=== PATIENT | female | born 1995 | race Caucasian/White ===

== ENCOUNTER → 2023-11-28 10:53 | Outpatient (REF) | payer OTHER, SELFPAY | LOC: RAD 10:53 | PROVIDERS: ATTENDING PHYSICIAN Obstetrics & Gynecology; FAMILY PHYSICIAN Family Medicine | DX: Z31.41 Encounter for fertility testing (principal) | CPT/HCPCS: 58340; 74740 ==

== ENCOUNTER → 2024-07-24 06:52 | Outpatient (REF) | payer OTHER, SELFPAY | LOC: PNTC 06:52 | PROVIDERS: ATTENDING PHYSICIAN Obstetrics & Gynecology | DX: Z36.0 Encounter for antenatal screening for chromosomal anomalies (principal); Z36.82 Encounter for antenatal screening for nuchal translucency; O99.210 Obesity complicating pregnancy, unspecified trimester | CPT/HCPCS: 76801; 76813 ==

== ENCOUNTER → 2024-08-19 06:59 | Outpatient (REF) | payer OTHER, SELFPAY | LOC: PNTC 06:59 | PROVIDERS: ATTENDING PHYSICIAN Obstetrics & Gynecology | DX: O99.210 Obesity complicating pregnancy, unspecified trimester (principal) | CPT/HCPCS: 76805 ==

== ENCOUNTER → 2024-09-17 06:57 | Outpatient (REF) | payer OTHER, SELFPAY | LOC: PNTC 06:57 | PROVIDERS: ATTENDING PHYSICIAN Obstetrics & Gynecology | DX: O99.210 Obesity complicating pregnancy, unspecified trimester (principal) | CPT/HCPCS: 76811; 76817 ==

== ENCOUNTER → 2024-10-16 06:54 | Outpatient (REF) | payer OTHER, SELFPAY | LOC: PNTC 06:54 | PROVIDERS: ATTENDING PHYSICIAN Obstetrics & Gynecology | DX: O99.210 Obesity complicating pregnancy, unspecified trimester (principal) | CPT/HCPCS: 76816 ==

== ENCOUNTER → 2024-11-13 06:57 | Outpatient (REF) | payer OTHER, SELFPAY | LOC: PNTC 06:57 | PROVIDERS: ATTENDING PHYSICIAN Obstetrics & Gynecology | DX: O99.210 Obesity complicating pregnancy, unspecified trimester (principal) | CPT/HCPCS: 76816 ==

== ENCOUNTER → 2024-12-11 06:54 | Outpatient (REF) | payer OTHER, SELFPAY | LOC: PNTC 06:54 | PROVIDERS: ATTENDING PHYSICIAN Obstetrics & Gynecology | DX: O99.210 Obesity complicating pregnancy, unspecified trimester (principal) | CPT/HCPCS: 76816 ==

== ENCOUNTER 2024-12-17 13:34 | Observation (INO) | payer OTHER, SELFPAY ==
[2024-12-17 14:13] VITALS: BP 128/76; BMI 43.4
[2024-12-17 14:13] LABS: Hematocrit 36.4 % (37.0-47.0); Hemoglobin 12.8 g/dL (12.0-16.0); Mean Corp Hgb Conc. 35.2 g/dL (33.0-37.0); Mean Corpuscular Volume 91.9 fL (81.0-99.0); Platelet Count 266 10^3/uL (130-400); Red Cell Dist. Width 12.9 % (11.5-14.5)
[2024-12-17 14:16] LABS: Urine Character Clear (Clear)
[2024-12-17 14:38] LABS: ALT (SGPT) 13 U/L (0-35); AST (SGOT) 18 U/L (14-36); Albumin 3.6 g/dl (3.5-5.0); Alkaline Phosphatase 110 U/L (38-126); Blood Urea Nitrogen 4 mg/dl (7-17); Calcium 9.7 mg/dl (8.4-10.2); Carbon Dioxide 22 mmol/L (22-30); Chloride 109 mmol/L (98-107); Estimated Creatinine Clearance > 125 ml/min; Glucose 126 mg/dl (70-99); Potassium 4.2 mmol/L (3.5-5.1); Sodium 135 mmol/L (135-145); Total Protein 6.4 g/dl (6.3-8.2); eGFR > 60.00
[2024-12-17] MEDS: TYLENOL 1000 MG PO (16:04)
== END 2024-12-17 17:00 | disposition home or self-care (01) ==
LOC: PNTC-IN 13:34
PROVIDERS: ADMITTING PHYSICIAN Obstetrics & Gynecology
DX: O26.893 Other specified pregnancy related conditions, third trimester (principal); Z3A.33 33 weeks gestation of pregnancy; R51.9 Headache, unspecified; R42 Dizziness and giddiness; H53.9 Unspecified visual disturbance
CPT/HCPCS: 59025; 80053; 81003; 82570; 84156; 85027; G0378

== ENCOUNTER → 2024-12-24 06:57 | Outpatient (REF) | payer OTHER, SELFPAY | LOC: PNTC 06:57 | PROVIDERS: ATTENDING PHYSICIAN Obstetrics & Gynecology | DX: O99.210 Obesity complicating pregnancy, unspecified trimester (principal) | CPT/HCPCS: 59025; 76815 ==

== ENCOUNTER → 2024-12-31 07:13 | Outpatient (REF) | payer OTHER, SELFPAY | LOC: PNTC 07:13 | PROVIDERS: ATTENDING PHYSICIAN Obstetrics & Gynecology | DX: O99.210 Obesity complicating pregnancy, unspecified trimester (principal) | CPT/HCPCS: 59025; 76815 ==

== ENCOUNTER → 2025-01-07 06:52 | Outpatient (REF) | payer OTHER, SELFPAY | LOC: PNTC 06:52 | PROVIDERS: ATTENDING PHYSICIAN Obstetrics & Gynecology | DX: O99.210 Obesity complicating pregnancy, unspecified trimester (principal) | CPT/HCPCS: 59025; 76816 ==

== ENCOUNTER → 2025-01-14 06:55 | Outpatient (REF) | payer OTHER, SELFPAY | LOC: PNTC 06:55 | PROVIDERS: ATTENDING PHYSICIAN Obstetrics & Gynecology | DX: O99.213 Obesity complicating pregnancy, third trimester (principal); O36.63X0 Maternal care for excessive fetal growth, third trimester, not applicable or unspecified | CPT/HCPCS: 59025; 76815 ==

== ENCOUNTER → 2025-01-21 07:46 | Outpatient (REF) | payer OTHER, SELFPAY | LOC: PNTC 07:46 | PROVIDERS: ATTENDING PHYSICIAN Obstetrics & Gynecology | DX: O36.63X0 Maternal care for excessive fetal growth, third trimester, not applicable or unspecified (principal); O99.213 Obesity complicating pregnancy, third trimester | CPT/HCPCS: 59025; 76815 ==

== ENCOUNTER 2025-01-27 19:30 | Inpatient (IN) | payer OTHER, SELFPAY ==
[2025-01-27 19:36] VITALS: BP 126/88; BMI 44.6
[2025-01-27 20:17] LABS: Hematocrit 37.6 % (37.0-47.0); Hemoglobin 13.1 g/dL (12.0-16.0); Mean Corp Hgb Conc. 34.8 g/dL (33.0-37.0); Mean Corpuscular Volume 90.6 fL (81.0-99.0); Nucleated Red Blood Cells % 0 %; Platelet Count 245 10^3/uL (130-400); Red Cell Dist. Width 12.8 % (11.5-14.5)
[2025-01-27] MEDS: CYTOTEC 25 MICROGRAM VAG (20:37)
[2025-01-28] MEDS: LR 1000 IV (07:10)
[2025-01-28] MEDS: TYLENOL 1000 MG PO (07:54)
[2025-01-28] MEDS: BICITRA 30 ML PO (07:54)
[2025-01-28] MEDS: ANCEF 15 MG IV (08:24)
--- NOTE | 2025-01-28 09:08 | HPS.HSE ---
Family Physician
-
Family Physician: NO INTERVIEW UNKNOWN
Chief Complaint
-
suspected LGA
History of Present Illness
HPI: Patient is a 29yo @39.2 who presents for IOL for suspected macrosomia. She has no complaints.
complications:
- BMI 41
- Suspected macrosomia- EFW on 01/23 4474g (>90%tile), AC >97%tile
- GBS positive
PMHx: obesity
Meds: PNV
Surghx: denies
NKDA
Socialhx: denies
Famhx: non-contributory
OBHx:
labs: Blood type O+, Ab neg, RPR non-reactive,UCx neg, HBsAg neg, HIV neg, GCCT neg, Rubella immune, Hep C neg, 1hr 150, 3hr w/ 1 elevation, GBS positive
Medical History
Past Medical History
Past Medical History: Reports None
Past Surgical History: Reports None
Social History
Tobacco: Non-smoker
Alcohol: None
Drug: None
Family History
Family History: Not pertinent
Allergies / Home Medications
Allergies reflects when Allergies were last updated in [facility].
Home Medications with original date entered in [facility]
Allergy/Medication List:
NKDA
Meds: PNV
Review of Systems
-
A 12 point ROS was completed and negative except as noted: Yes
Physical Exam
Vital Signs
Vital Signs
Temp Pulse Resp BP Pulse Ox
98.3 F 90 18 126/88 99
01/27/25 19:36 01/27/25 19:36 01/27/25 19:36 01/27/25 19:36 01/27/25 19:36
Physical Exam
General: Well Developed and Well Nourished
HEENT: NormoCephalic
Respiratory: Non Labored Respirations
Cardiac: Regular Rhythm
Skin: Warm and Dry
Neuro: Awake and Alert
Psych: Calm
Laboratory Results
-
01/27/25 20:03
Impression/Plan
-
IMPRESSION:
Patient is a 29yo @39.3 who presented for elective IOL for suspected macrosomia
PLAN:
- On admission, suspected macrosomia was reviewed with patient and her . EFW on 01/23 was 4474g with an AC >97%tile. Patient was offered a after last US and also discussed again today. Patient would like to proceed with IOL. Risk of
protracted labor course and shoulder dystocia reviewed. Cytotec 25mcg PV was placed.
- When she was due for her next dose of Cytotec, she requested to stop the induction and wanted to proceed with primary section. Risk and benefits of continuing IOL vs proceeding with repeat section were reviewed. Patient wanted to
proceed with . Risks, benefits and alternatives reviewed including bleeding, infection, damage to surrounding structures and need for future operations reviewed. Consents were signed
- 3g of Ancef ordered to be given prior to
- Plan to proceed with primary section
[2025-01-28] MEDS: TORADOL 15 MG IV ×3 (11:07→22:52)
[2025-01-28] MEDS: ROXICODONE 5 MG PO ×2 (18:10→23:05)
[2025-01-28] MEDS: BENADRYL 25 MG PO (20:29)
[2025-01-28] MEDS: COLACE 100 MG PO (22:52)
[2025-01-29] MEDS: TORADOL 15 MG IV (05:06)
[2025-01-29] MEDS: ROXICODONE 5 MG PO ×2 (05:15→09:49)
[2025-01-29 07:15] LABS: Hematocrit 27.9 % (37.0-47.0); Hemoglobin 9.7 g/dL (12.0-16.0); Mean Corp Hgb Conc. 34.8 g/dL (33.0-37.0); Mean Corpuscular Volume 91.5 fL (81.0-99.0); Platelet Count 246 10^3/uL (130-400); Red Cell Dist. Width 13.1 % (11.5-14.5)
[2025-01-29] MEDS: COLACE 100 MG PO ×2 (08:25→20:28)
[2025-01-29] MEDS: PRENATAL PLUS 1 TABLET PO (08:25)
--- NOTE | 2025-01-29 10:50 | W.PN.ANS.POP ---
Anesthesia Post Operative
- Anesthesia Post Op Note
Vital Signs Stable-See Nursing Note: Yes
Airway Patent: Yes
Adequate Pain Control: Yes
Change in Mental Status: No
Current Postoperative Nausea & Vomiting: No
Anesthesia Complications: No
General Anesthetic Recall: No
Unplanned Admission: No
Post Op Hydration Adequate: Yes
[2025-01-29] MEDS: MOTRIN 600 MG PO ×2 (11:39→20:28)
[2025-01-29] MEDS: TYLENOL 650 MG PO ×2 (11:39→20:28)
[2025-01-30] MEDS: MOTRIN 600 MG PO ×3 (05:31→19:32)
[2025-01-30] MEDS: TYLENOL 650 MG PO ×3 (05:31→19:32)
[2025-01-30] MEDS: FEOSOL 325 MG PO (08:21)
[2025-01-30] MEDS: COLACE 100 MG PO ×2 (08:21→19:32)
[2025-01-30] MEDS: PRENATAL PLUS 1 TABLET PO (08:21)
[2025-01-31] MEDS: TYLENOL 650 MG PO (00:18)
[2025-01-31] MEDS: MOTRIN 600 MG PO (01:50)
[2025-01-31] MEDS: PRENATAL PLUS 1 TABLET PO (08:09)
[2025-01-31] MEDS: FEOSOL 325 MG PO (08:09)
[2025-01-31] MEDS: COLACE 100 MG PO (08:09)
--- NOTE | 2025-01-31 11:25 | W.DS.TRANS ---
DC Summary - Computer Forensic Specialist
-
Discharge Instructions:
Discharge Diagnosis/Procedures primary cs
Instructions:
Stand-Alone Forms: LDRP Delivery
Changes to Home Medications: No
Discharge Medications:
DC Medications w/original date entered in [facility]
prenat.vits,samuel,zhc-yvhg-bveqm 1 tab PO DAILY 01/27/25
ibuprofen 600 mg tablet 600 mg PO Q6HPRN PRN cramps #90 tabs 01/31/25
Home Medication Changes
Pending Results: No
Total time spent discharging patient (in min): 15
[2025-01-31 13:01] LABS: Syphilis/T. pallidum Ab Reflex Negative (Negative)
== END 2025-01-31 12:40 | disposition home or self-care (01) | DRG 788 ==
LOC: LDRP 19:30
PROVIDERS: Obstetrics & Gynecology; ADMITTING PHYSICIAN Student in an Organized Health Care Education/Training Program
PROC: 3E0P7VZ Introduction of Hormone into Female Reproductive, Via Natural or Artificial Opening (ICD-10-PCS; 2025-01-27)
PROC: 10D00Z1 Extraction of Products of Conception, Low, Open Approach (ICD-10-PCS; 2025-01-28)
DX: O36.63X0 Maternal care for excessive fetal growth, third trimester, not applicable or unspecified (principal); Z3A.39 39 weeks gestation of pregnancy; Z37.0 Single live birth; O99.824 Streptococcus B carrier state complicating childbirth; O62.2 Other uterine inertia; O99.214 Obesity complicating childbirth; O66.0 Obstructed labor due to shoulder dystocia; E66.01 Morbid (severe) obesity due to excess calories; O77.0 Labor and delivery complicated by meconium in amniotic fluid; Z83.3 Family history of diabetes mellitus
CPT/HCPCS: 36415; 85025; 85027; 86780; 86850; 86900; 86901; 88307

== ENCOUNTER → 2025-02-08 15:20 | Day surgery (SDC) | payer OTHER, SELFPAY ==
[2025-02-08] VITALS (10 sets, daily range): BP systolic 117–155; BP diastolic 66–88; BMI 44.2
--- NOTE | 2025-02-08 14:11 | ED.GENMED ---
History of Present Illness
General
Chief Complaint: Post Operative Problem(s)
Time Seen by Provider: 02/08/25 12:21
History of Present Illness
History of Present Illness:
Patient status post January 28. Had a mild wound dehiscence seen this week. Probed at that time. Worsening wound distance today with bleeding. No general abdominal pain no fever chills
Past History
Past History
ED Past Medical History: None
ED Past Surgical History:
Social History
Tobacco: Non-smoker
Drug: None
Personal: Single
Living: with family
Employment: Not employed
Family History
Family History: Hypertension
Review of Systems
Review of Systems
All Other Systems: Not applicable
Constitutional: Denies fever or chills
ABD/GI: Denies abdominal pain
Phy Exam
Physical Exam
Physical Exam:
GENERAL: Alert and oriented in no apparent distress
EYE: Orbits normal.
CARDIAC: Regular rate and rhythm without any obvious murmurs.
LUNGS: Clear breath sounds,normal
ABDOMEN: Soft, without focal tenderness or distention. Elevated BMI. Horizontal incision with diffuse clot and superficial dehiscence. Small amount of old blood.
NEUROLOGICAL: Alert and oriented , grossly non-focal
SKIN: Warm and dry
PSYCH: Normal and appropriate interaction.
Course
Orders/Labs/Results
Orders:
Orders
02/08/25 Lunch
NPO
Allow oral meds: No
Allow clear liquids: No
02/08/25 14:04
Type+Screen Urgent
Complete Blood Count/With Diff Urgent
Vital Signs
Initial and Last Documented VS:
Initial Vital Signs
Temp Pulse Resp BP Pulse Ox
98.2 F 73 16 155/83 99
02/08/25 11:13 02/08/25 11:13 02/08/25 11:13 02/08/25 11:13 02/08/25 11:13
Last Documented Vital Signs
Temp Pulse Resp BP Pulse Ox
98.2 F 77 19 138/78 98
02/08/25 11:13 02/08/25 14:09 02/08/25 14:09 02/08/25 14:09 02/08/25 14:09
*Pulse Oximetry
SaO2: 98
Oxygen Mode of Delivery: Room air
Patient hypoxic: no (99)
*Critical Care Note
Total Time (30-74mins, 75-104mins- exclusive of procedures): Not Applicable
Update Note
Update Note:
Seen by [employer]SET MAKER. They are taken to the OR for hematoma evacuation
ED Attending Note
-
Portions of this chart may have been created with voice recognition software.� Occasional wrong word or��sound alike� substitutions may have occurred due to the inherent limitations of voice recognition software.
Discharge Plan
Departure
Patient Disposition: Admit
Date of Disposition: 02/08/25
Time of Disposition: 14:12
Presentation/result/management discussed w/ accepting MD/DO: MACHINE CLOTH MEASURER
Discharge Problem:
Superficial wound dehiscence, hematoma
Prescriptions:
No Action
prenat.vits,samuel,pgb-mesb-rwoax Tablet
1 tab PO DAILY
ibuprofen 600 mg Tablet
600 mg PO Q6HPRN PRN (Reason: cramps) Qty: 90 0RF
Referrals:
Dirk Lomeli DO [Family Provider, Family Practice]
Interventions
Interventions:
*Risk Screen - Suicide Last Done: 02/08/25 14:06
*General Assessment Last Done: 02/08/25 14:06
*Neglect/Abuse Screening Last Done: 02/08/25 14:06
*ED- Fall Risk Assessment Last Done: 02/08/25 14:06
*ED COVID-19 Vaccine History Last Done: 02/08/25 14:06
ED-Skin Assessment Last Done: 02/08/25 14:06
Discharge Date and Time
Print Language: POLISH
[2025-02-08 14:13] LABS: Hematocrit 29.7 % (37.0-47.0); Hemoglobin 9.6 g/dL (12.0-16.0); Mean Corp Hgb Conc. 32.3 g/dL (33.0-37.0); Mean Corpuscular Volume 96.1 fL (81.0-99.0); Nucleated Red Blood Cells % 0 %; Platelet Count 373 10^3/uL (130-400); Red Cell Dist. Width 14.2 % (11.5-14.5)
--- NOTE | 2025-02-08 15:49 | HPS.HSE ---
Family Physician
-
Family Physician: Dirk Lomeli
Chief Complaint
-
Wound Hematoma
History of Present Illness
29yo s/p 1- C/S for LGA on 01/28/25 presents from home due to worsening incisional pain and bleeding. She was seen in the office on 02/04 as she noted a small defect in her incision. At that time she was felt to have a hematoma but no concern for
infection and close monitoring was recommended. She states now she has some more pain and felt the incision was more open. She denies f/c/foul drainage from the incision. No n/v
Medical History
Past Medical History
Past Medical History: Reports Other (Obesity)
Past Surgical History: Reports
Social History
Tobacco: Non-smoker
Alcohol: None
Drug: None
Personal:
Family History
Family History: Not pertinent
Allergies / Home Medications
Allergies reflects when Allergies were last updated in [facility].
Home Medications with original date entered in [facility]
Allergy/Medication List:
NKDA
Medications: Tylenol 1000mg prn
iron sulfate 325mg QD
Ibuprofen 600mg Q6Hrs prn
Review of Systems
-
History Source: Patient
Constitutional: Reports See HPI
Abdomen/GI: Reports See HPI
Physical Exam
Vital Signs
Vital Signs
Temp Pulse Resp BP Pulse Ox
98.2 F 83 19 153/88 98
02/08/25 11:13 02/08/25 15:19 02/08/25 15:19 02/08/25 15:19 02/08/25 15:19
Physical Exam
General: Well Developed, Well Nourished and No Apparent Distress
GI: Soft, Non Distended and Other (mild ttp, some bruising noted along the superior aspect of the incision, the vast majority of her incision is open with hematoma visible at the opening. No active bleeding noted. No purulent drainage. Hematoma too
large to evacuate at bedside)
Neuro: Awake, Alert and Oriented
Laboratory Results
-
02/08/25 14:04
Data Reviewed
-
Lab Data: Labs Reviewed by me
Impression/Plan
-
IMPRESSION: 29yo 11 Days post C/S with Wound separation due to Large wound Hematoma
PLAN: I explained to patient that given the extent of this hematoma I do not think it can be evacuated at the bedside and I recommend we proceed to the O.R for evacuation, exploration, wash out and reapproximation. Reviewed risks of the procedure
and consents were signed
3g ancef ordered
nursing insurance office supervisor and ER staff made aware of plan for surgery.
[2025-02-08] MEDS: DILAUDID 0.25 MG IV ×3 (16:40→17:12)
[2025-02-08] MEDS: ROXICODONE 5 MG PO (17:34)
== END ==
LOC: EMR 11:05 → SDS 15:20
PROVIDERS: ATTENDING PHYSICIAN Obstetrics & Gynecology; EMERGENCY PHYSICIAN Emergency Medicine; FAMILY PHYSICIAN Family Medicine
DX: L76.32 Postprocedural hematoma of skin and subcutaneous tissue following other procedure (principal); E66.9 Obesity, unspecified
CPT/HCPCS: 10180; 85025; 86850; 86900; 86901; 99285

== ENCOUNTER 2025-02-14 17:29 | Emergency (ER) | payer OTHER, SELFPAY ==
[2025-02-14 17:43] VITALS: BP 128/71
[2025-02-14 18:03] LABS: Hematocrit 31.8 % (37.0-47.0); Hemoglobin 10.6 g/dL (12.0-16.0); Mean Corp Hgb Conc. 33.3 g/dL (33.0-37.0); Mean Corpuscular Volume 93.8 fL (81.0-99.0); Nucleated Red Blood Cells % 0 %; Platelet Count 409 10^3/uL (130-400); Red Cell Dist. Width 13.1 % (11.5-14.5)
[2025-02-14 18:34] LABS: ALT (SGPT) 38 U/L (0-35); AST (SGOT) 31 U/L (14-36); Albumin 4.0 g/dl (3.5-5.0); Alkaline Phosphatase 97 U/L (38-126); Blood Urea Nitrogen 16 mg/dl (7-17); Calcium 9.3 mg/dl (8.4-10.2); Carbon Dioxide 27 mmol/L (22-30); Chloride 105 mmol/L (98-107); Glucose 99 mg/dl (70-99); Potassium 4.9 mmol/L (3.5-5.1); Sodium 136 mmol/L (135-145); Total Protein 6.7 g/dl (6.3-8.2); eGFR > 60.00
[2025-02-14] MEDS: CLEOCIN 450 MG PO (19:15)
--- NOTE | 2025-02-14 20:24 | HP.FOC2 ---
Focused History & Physical
Chief Complaint
HPI:
Chief Complaint: Wound Infection
HPI / Indication for Planned Procedure: 29yo presents to the ER at my request. She is s/p 1-LTCS on 01/28, that was c/b post-op wound separation and hematoma that required return to the OR on 02/08. The incision was closed with interrupted
sutures of silk. She has been having serous drainage until this afternoon when her noticed a thicker drainage and a foul odor. Patient also notices more tenderness on the right side of the incision, but otherwise no f/c/n/v.
Relevant Past Medical History: Other (Obesity)
Relevant Social History: Negative
Relevant Family History: Positive for (PGM- Pancreatic CA)
Relevant Past Surgical History: Positive for (1. 1- LTCS 2. Evacuation of wound hematoma and reclosure. )
Review of Systems
Review of Pertinent Systems: All Systems Negative
Medication
See Medication form for detailed medications: Yes
Medication List (including Herbals & OTC):
acetaminophen 500 mg tablet 1,000 mg PO Q6H PRN mild pain 02/08/25
calcium carbonate 500 mg PO DAILY 02/08/25
docusate sodium 100 mg tablet 100 mg PO BID 02/08/25
ferrous sulfate 325 mg (65 mg iron) tablet 325 mg PO DAILY 02/08/25
ibuprofen 600 mg tablet 600 mg PO Q6HPRN PRN mild pain 02/08/25
vit no.95-ferrous fumarate 28 mg-folic acid 800 mcg tablet () 1 tab PO DAILY 02/08/25
clindamycin HCl 300 mg capsule (Cleocin HCl) 300 mg PO Q6H 7 days #28 caps 02/14/25
Medications Reviewed: Yes
Allergies and Reactions
Patient has Allergies: No
Noted Allergies and Reactions:
Allergy/AdvReac Type Severity Reaction Status Date / Time
No Known Allergies Allergy Verified 02/14/25 17:44
Pertinent Physical Exam
All Other Systems: Negative
Abdomen: Other (There is very mild erythema along the skin edges R>L with a slight exudate noted along the skin edge in the right, this was able to be cleared away with a qtip. Q tip was also used to probe the incision.) and Other (There were 2
pockets from which I was able to get purulent drainage- a small amount. I then irrigated with saline until no further purulence was noted. Incision then covered with gauze sponges and ABD pad)
Diagnosis / Assessment
29yo POD#6 s/p return to OR for evacuation of wound hematoma, now with developing wound infection
Plan / Procedure
Irrigated the incision today and removed the small amount of exudate noted on the right edge. She has no systemic symptoms and no leukocytosis so I think a course of oral antibiotics is appropriate. 1 dose of clindamycin ordered now and then script
for 300mg PO Q6HR x7 days sent to pharmacy. I reviewed care instructions and reasons to call again. She is to follow up with me in the office on 01/19.
Anesthesia/Sedation to be done by Anesthesia Provider: No
Vital Signs / Labs
-
Vital Signs and Labs:
Temp Pulse Resp BP Pulse Ox
98.9 F 85 18 128/71 98
02/14/25 17:43 02/14/25 17:43 02/14/25 17:43 02/14/25 17:43 02/14/25 17:43
02/14/25 17:57
02/14/25 17:57
02/14/25
17:57
RBC 3.39 L
Hgb 10.6 L
Hct 31.8 L
MCH 31.3 H
Plt Count 409 H
ALT 38 H
== END 2025-02-14 19:19 | disposition home or self-care (01) ==
LOC: EMR 17:29
PROVIDERS: Emergency Medicine; EMERGENCY PHYSICIAN Obstetrics & Gynecology; FAMILY PHYSICIAN Family Medicine
DX: L08.9 Local infection of the skin and subcutaneous tissue, unspecified (principal); L76.82 Other postprocedural complications of skin and subcutaneous tissue; Y83.8 Other surgical procedures as the cause of abnormal reaction of the patient, or of later complication, without mention of misadventure at the time of the procedure; E66.9 Obesity, unspecified
CPT/HCPCS: 99283; 80053; 85025